=== PATIENT | male | born 1960 | race Caucasian/White ===

== ENCOUNTER → 2018-07-16 | Day surgery (SDC) | payer OTHER ==
[2018-07-13 09:53] LABS: BASOPHILS # (AUTO) 0.1 (0.0-0.1); BASOPHILS % 0.9 % (0.0-1.0); EOSINOPHILS # (AUTO) 0.4 (0.0-0.4); EOSINOPHILS % 5.1 % (0.0-6.0); HEMOGLOBIN 13.9 g/dL (14.0-18.0); LYMPHOCYTES % 27.2 % (18.0-39.1); MEAN CORPUSCULAR HEMOGLOBIN 31.6 pg (28-32); MEAN CORPUSCULAR HGB CONC 34.8 g/dL (31-35); MEAN CORPUSCULAR VOLUME 90.9 fL (81-99); MONOCYTES # (AUTO) 0.7 (0.2-0.8); NEUTROPHILS # (AUTO) 4.1 (2.1-6.9); NEUTROPHILS % 55.6 % (38.7-80.0); PLATELET COUNT 222 x10e3/uL (140-360); RED CELL DISTRIBUTION WIDTH 11.8 % (11.7-14.4)
[~2018-07-16] MED LIST: ASPIR 8181 MG PO; ATORVASTATIN CA20 MG PO; FENOFIBRATE145 MG PO; FENTANYL CITRATE/PF 100MCG/2 ML INJ ONE; LIDOCAINE HCL 2% LOCAL INJ 5 ML SDV VIAL INJ ONE; LOSARTAN-HCTZ1 EAC1 PO; MIDAZOLAM HCL 2 MG/2 ML VIAL ONE; PLAVIX75 MG PO; PROPOFOL IV EMULSION 10 MG/ML 50 ML VIAL ONE; VIT D3 PO
[2018-07-16 09:15] VITALS: BP 108/67
--- NOTE | 2018-07-16 10:46 | Operative Report ---
DATE OF PROCEDURE: July 16, 2018 REFERRING PHYSICIAN: Dr. You Palomo PROCEDURES PERFORMED 1. Esophagogastroduodenoscopy with biopsies. 2. Colonoscopy with polypectomy. INDICATIONS FOR EGD: Heartburn and indigestion. INDICATIONS FOR COLONOSCOPY: Colorectal cancer screening. MEDICATION: Patient was done under MAC. Please see anesthesiologist's note. PROCEDURE: With the patient in the left lateral decubitus position, the flexible fiberoptic Olympus gastroscope was introduced into the esophagus under direct visualization without any difficulty. There was some patchy erythema noted in the distal esophagus. The scope was then advanced with ease into the stomach. Mucosa overlying the antrum and the body revealed some diffuse erythema and moderate edema, and biopsies were obtained and sent to stain for H. pylori. Pylorus appeared to be of normal contour and shape. It was intubated with ease. The scope was advanced all the way to the 2nd portion of the duodenum. Biopsies were obtained from the proximal 2nd portion as there was somewhat scalloped folds noted and biopsies were obtained to rule out sprue. The mucosa overlying the bulb appeared to be within normal limits. The scope was then withdrawn back into the stomach and retroflexed. The mucosa overlying the fundus and the cardia appeared to be within normal limits. The scope was then straightened out. It was subsequently withdrawn. Patient tolerated the procedure well. IMPRESSION 1. Distal esophagitis. 2. Gastritis, biopsied. Biopsies sent to stain for Helicobacter pylori. 3. Rule out sprue. PLAN: Follow up histology. Initiate Protonix 40 mg 1 p.o. q.a.m. a.c. The patient was then turned around. After adequate lubrication of the anal canal, a flexible fiberoptic Olympus colonoscope was inserted into the rectum with ease and advanced all the way to the cecum. The scope was then withdrawn slowly. Mucosa overlying the cecum appeared to be within normal limits. Two polyps were snared from the ascending colon and 1 polyp was snared from the transverse colon. Descending and sigmoid appeared to be within normal limits. Two polyps were hot biopsied from the rectosigmoid and 2 polyps were hot biopsied from the rectum. The scope was then retroflexed into the distal rectum. Small internal hemorrhoids were noted, none of which was actively bleeding. The scope was then straightened out. It was subsequently withdrawn. Patient tolerated the procedure well. IMPRESSION 1. Ascending colon polyps times 2, snared. 2. Transverse colon polyp times 1, snared. 3. Rectal sigmoid polyps times 2, hot biopsied. 4. Rectal polyps times 2, hot biopsied. 5. Internal hemorrhoids, none actively bleeding. PLAN: Follow up histology. Initiate high-fiber and low-fat diet. Initiate high-fiber supplement. Patient might benefit from a followup colonoscopy in 3 years. Job#: [id number] RI cc:YOU PALOMO M.D.
== END | disposition home or self-care (01) ==
LOC: OR 06:57
PROVIDERS: ATTEND Internal Medicine Gastroenterology
DX: Z12.11 Encounter for screening for malignant neoplasm of colon (principal); D12.2 Benign neoplasm of ascending colon; D12.3 Benign neoplasm of transverse colon; K62.1 Rectal polyp; K29.50 Unspecified chronic gastritis without bleeding; K20.9 Esophagitis, unspecified; K64.8 Other hemorrhoids; I25.10 Atherosclerotic heart disease of native coronary artery without angina pectoris; I10 Essential (primary) hypertension; Z01.810 Encounter for preprocedural cardiovascular examination; Z01.812 Encounter for preprocedural laboratory examination; F17.220 Nicotine dependence, chewing tobacco, uncomplicated; Z79.82 Long term (current) use of aspirin; Z79.02 Long term (current) use of antithrombotics/antiplatelets; Z95.5 Presence of coronary angioplasty implant and graft
CPT/HCPCS: 36415; 43239; 45384; 45385; 85025; 93005; J2001; J2250; 45378

== ENCOUNTER 2018-07-30 17:53 | Inpatient (IN) | payer OTHER ==
[~2018-07-30] VITALS: Ht 180.3 cm; Wt 112.9 kg
[~2018-07-30 17:53] MED LIST changes: -FENTANYL CITRATE/PF 100MCG/2 ML INJ ONE; -LIDOCAINE HCL 2% LOCAL INJ 5 ML SDV VIAL INJ ONE; -MIDAZOLAM HCL 2 MG/2 ML VIAL ONE; -PROPOFOL IV EMULSION 10 MG/ML 50 ML VIAL ONE
[2018-07-30] MEDS ORDERED: SODIUM CHLORIDE 0.9% 1000ML 2,000 ML ONE (18:17)
[2018-07-30] MEDS ORDERED: SODIUM CHLORIDE 0.9% 1000ML 1,000 ML IV STA ×2 (18:20→18:21)
[2018-07-30] MEDS ORDERED: PANTOPRAZOLE 40 MG 10ML VIAL IV ONE (18:22)
[2018-07-30 18:25] LABS: BASOPHILS # (AUTO) 0.1 (0.0-0.1); BASOPHILS % 0.6 % (0.0-1.0); EOSINOPHILS # (AUTO) 0.5 (0.0-0.4); EOSINOPHILS % 3.7 % (0.0-6.0); HEMATOCRIT 32.5 % (38.2-49.6); HEMOGLOBIN 11.5 g/dL (14.0-18.0); LYMPHOCYTES # (AUTO) 3.1 (1.0-3.2); LYMPHOCYTES % 24.3 % (18.0-39.1); MEAN CORPUSCULAR HEMOGLOBIN 31.9 pg (28-32); MEAN CORPUSCULAR HGB CONC 35.4 g/dL (31-35); MEAN CORPUSCULAR VOLUME 90.3 fL (81-99); MONOCYTES # (AUTO) 1.1 (0.2-0.8); MONOCYTES % 8.4 % (4.4-11.3); NEUTROPHILS # (AUTO) 7.9 (2.1-6.9); NEUTROPHILS % 62.3 % (38.7-80.0); PLATELET COUNT 284 x10e3/uL (140-360); RED CELL DISTRIBUTION WIDTH 11.9 % (11.7-14.4)
[2018-07-30 18:35] LABS: INR 0.89; PROTHROMBIN TIME 12.9 seconds (11.9-14.5)
[2018-07-30 18:37] LABS: PARTIAL THROMBOPLASTIN TIME 20.6 seconds (23.8-35.5)
[2018-07-30 18:47] LABS: ALANINE AMINOTRANSFERASE 32 IU/L (0-55); ALBUMIN 3.8 g/dL (3.5-5.0); ALBUMIN/GLOBULIN RATIO 1.5 (0.8-2.0); ALKALINE PHOSPHATASE 31 IU/L (40-150); AMYLASE 61 U/L (25-125); ANION GAP 17.5 mmol/L (8-16); BLOOD UREA NITROGEN 21 mg/dL (7-26); BUN/CREATININE RATIO 17 (6-25); CALCIUM 9.2 mg/dL (8.4-10.2); CARBON DIOXIDE 20 mmol/L (22-29); CHLORIDE 106 mmol/L (98-107); CREATINE KINASE 204 IU/L (30-200); CREATININE, SERUM 1.24 mg/dL (0.72-1.25); EST GLOMERULAR FILTRATION RATE 60 ML/MIN (60-); GLUCOSE 156 mg/dL (74-118); LIPASE 55 U/L (8-78); MAGNESIUM 1.9 MG/DL (1.3-2.1); POTASSIUM 3.5 mmol/L (3.5-5.1); SODIUM 140 mmol/L (136-145)
--- NOTE | 2018-07-30 19:01 | NUR ---
RCVED PT REPORT FROM JASON WADE. ASSUMED PT CARE, PT A&Ox3 , RESP EVEN AND UNLABORED, SKIN W&D AND NORMAL COLOR, NO CHANGE TO IV SITE, FAMILY AT BEDSIDE, PT AWARE OF PLAN OF CARE AND DENIES ANY OTHER CONCERNS
[2018-07-30 19:02] LABS: B-TYPE NATRIURETIC PEPTIDE2 < 10.0 pg/mL (0-100)
[2018-07-30] MEDS ORDERED: SODIUM CHLORIDE 0.9% 50ML 50 ML ONE ×2 (20:06→20:39)
--- NOTE | 2018-07-30 20:18 | NUR ---
BLOOD CULTURE DRAWN ON PT, PT GIVEN MEDS PER MD ORDERS, PT TOLERATED WELL, NO CHANGE TO IV SITE, DR TOMAS AT BEDSIDE AND DISCUSSED LAB RESULTS WITH PT AND TO INFORM PT THAT DR HELM WOULD BE TAKEN OVER CARE, PT AWARE OF PLAN OF CARE AND DENIES ANY OTHER CONCERNS, FAMILY AT BEDSIDE, WILL CONTINUE TO MONITOR
[2018-07-30] MEDS ORDERED: IOPAMIDOL 370 MG/ML 200 ML INFUS..BTL INJ ONE (20:40)
--- NOTE | 2018-07-30 21:23 | Diagnostic Imaging Report ---
EXAM: CT Abdomen and Pelvis WITH contrast INDICATION: Abdominal pain, GI bleeding ^abdominal pain and gi bleed ^Y COMPARISON: None. TECHNIQUE: Abdomen and pelvis were scanned utilizing a multidetector helical scanner from the lung base to the pubic symphysis after administration of IV contrast. Coronal and sagittal reformations were obtained. Routine protocol was performed. Scan was performed during portal venous phase. IV CONTRAST: 100 mL of Isovue-370 ORAL CONTRAST: Water COMPLICATIONS: None RADIATION DOSE: Total DLP: 850.7 mGy*cm Estimated effective dose: (DLP x 0.015 x size factor) mSv CTDIvol has been reviewed. It is below the limits set by the Radiation Protocol Committee (RPC). Dose modulation, iterative reconstruction, and/or weight based adjustment of the mA/kV was utilized to reduce the radiation dose to as low as reasonably achievable. FINDINGS: LINES and TUBES: None. LOWER THORAX: Unremarkable HEPATOBILIARY: Diffuse hypoattenuation of the liver relative to the spleen, compatible with hepatic steatosis. No focal hepatic lesions. No biliary ductal dilation. GALLBLADDER: No radio-opaque stones or sludge. No wall thickening. SPLEEN: No splenomegaly. PANCREAS: No focal masses or ductal dilatation. ADRENALS: No adrenal nodules KIDNEYS/URETERS: Kidneys enhance symmetrically. No hydronephrosis. No cystic or solid mass lesions. No stones. GI TRACT: No abnormal distention, wall thickening, or evidence of bowel obstruction. Area of intraluminal ill-defined hyperattenuation near the ileocecal valve appears greater in density than the supplying mesenteric vessels. Appendix is normal. PELVIC ORGANS/BLADDER: Unremarkable. LYMPH NODES: No lymphadenopathy. VESSELS: There is moderate atherosclerotic disease in the aorta and major arterial branches. PERITONEUM / RETROPERITONEUM: No free air or fluid. BONES: There are degenerative changes in the lumbar spine. SOFT TISSUES: Unremarkable. IMPRESSION: 1. Ill-defined intraluminal hyperdense intraluminal contents near the ileocecal valve favored to represent ingested material, although a site of GI bleeding cannot be excluded. 2. Otherwise, no acute abnormalities in the abdomen and pelvis. Signed by: DR. Jordan Hays MD on 07/30/2018 9:19 PM
--- NOTE | 2018-07-30 21:25 | Diagnostic Imaging Report ---
EXAMINATION: CHEST SINGLE (PORTABLE) INDICATION: Colorectal bleeding. COMPARISON: None FINDINGS: AP view TUBES and LINES: None. LUNGS: Lungs are well inflated. Lungs are clear. There is no evidence of pneumonia or pulmonary edema. PLEURA: No pleural effusion or pneumothorax. HEART AND MEDIASTINUM: The cardiomediastinal silhouette is unremarkable. BONES AND SOFT TISSUES: No acute osseous lesion. Soft tissues are unremarkable. UPPER ABDOMEN: No free air under the diaphragm. IMPRESSION: No acute thoracic abnormality. Signed by: DR. Jordan Hays MD on 07/30/2018 9:21 PM
--- NOTE | 2018-07-30 21:31 | Diagnostic Imaging Report ---
History:GI bleed Comparison studies:None Technique: Axial images were obtained from the skull base to the vertex. Coronal and sagittal reconstructions obtained from the axial data. Dose modulation, iterative reconstruction, and/or weight based adjustment of the mA/kV was utilized to reduce the radiation dose to as low as reasonably achievable. Contrast: None Findings: Scalp/skull: No abnormalities. No fractures, blastic or lytic lesions. Extra-axial spaces: No masses. No fluid collections. Brain sulci: Appropriate for age. Ventricles: Normal in size and configuration. No hydrocephalus. Parenchyma: No abnormal densities. No masses, hemorrhage, acute or chronic cortical vascular insults. Sellar/suprasellar region: No abnormalities Craniocervical junction: Patent foramen magnum. No Chiari one malformation. Atherosclerotic calcifications of the carotid siphons IMPRESSION: No acute abnormalities . Signed by: DR Sanket Robles M.D. on 07/30/2018 9:27 PM
[2018-07-30] MEDS: SODIUM CHLORIDE 0.9% 1000ML 1,000 ML IV SCH (22:27)
--- OUTSIDE RECORDS SUMMARY | 2018-07-30 22:28 | XMS REPORT ---
Author Author [facility] Address Unknown Phone Unavailable Care Team Providers Care Sql Analyst Name Role Phone Krystyna TOMAS Unavailable Unavailable Problems This patient has no known problems. Allergies, Adverse Reactions, Alerts This patient has no known allergies or adverse reactions. Medications This patient has no known medications. Results Test Description Test Time Test Comments Text Results Atomic Results Result Comments CT BRAIN WO 2018-07-30 21:24:00 [place] [address] Patient Name: DA SEGUNDO MR #: [id number] : 1960 Age/Sex: 58/M Req #: [id number] Adm Physician: Ordered by: JUSTINA BLACKWELL DINING SERVICE INSPECTOR Report #: [id number] Location: ER Room/Bed: Procedure: [id number] CT/CT BRAIN WO Exam Date: Exam Time: REPORT STATUS: Signed History:GI bleed Comparison studies:None Technique: Axial images were obtained from the skull base to the vertex. Coronal and sagittal reconstructions obtained from the axial data. Dose modulation, iterative reconstruction, and/or weight based adjustment of the mA/kV was utilized to reduce the radiation dose to as low as reasonably achievable. Contrast: None Findings: Scalp/skull: No abnormalities. No fractures, blastic or lytic lesions. Extra-axial spaces: No masses. No fluid collections. Brain sulci: Appropriate for age. Ventricles: Normal in size and configuration. No hydrocephalus. Parenchyma: No abnormal densities. No masses, hemorrhage, acute or chronic cortical vascular insults. Sellar/suprasellar region: No abnormalities Craniocervical junction: Patent foramen magnum. No Chiari one malformation. Atherosclerotic calcifications of the carotid siphons IMPRESSION: No acute abnormalities . Signed by: DR Sanket Robles M.D. on 07/30/2018 9:27 PM Dictated By: SANKET FREEMAN MD 26 Transcribed By: MARITO on 07/30/182126 COPY TO: JUSTINA BLACKWELL NP CHEST SINGLE (PORTABLE) 2018-07-30 21:19:00 [place] [address] Patient Name: DA SEGUNDO MR #: [id number] : 1960 Age/Sex: 58/M Req #: [id number] Adm Physician: Ordered by: JUSTINA BLACKWELL NP Report #: [id number] Location: ER Room/Bed: Procedure: [id number] DX/CHEST SINGLE (PORTABLE) Exam Date: Exam Time: REPORT STATUS: Signed EXAMINATION: CHEST SINGLE (PORTABLE) INDICATION: Colorectal bleeding. COMPARISON: None FINDINGS: AP view TUBES and LINES: None. LUNGS: Lungs are well inflated. Lungs are clear. There is no evidence of pneumonia or pulmonary edema. PLEURA: No pleural effusion or pneumothorax. HEART AND MEDIASTINUM: The cardiomediastinal silhouette is unremarkable. BONES AND SOFT TISSUES: No acute osseous lesion. Soft tissues are unremarkable. UPPER ABDOMEN: No free air under the diaphragm. IMPRESSION: No acute thoracic abnormality. Signed by: DR. Jordan Jesus MD on 07/30/2018 9:21 PM Dictated By: JORDAN JESUS MD 20 Transcribed By: MARITO on 07/30/182120 COPY TO: JUSTINA BLACKWELL NP CT ABDOMEN/PELVIS W 2018-07-30 21:06:00 [place] [address] Patient Name: DA SEGUNDO MR #: [id number] : 1960 Age/Sex: 58/M Req #: [id number] Adm Physician: Ordered by: JUSTINA BLACKWELL NP Report #: [id number] Location: ER Room/Bed: Procedure: [id number] CT/CT ABDOMEN/PELVIS W Exam Date: Exam Time: REPORT STATUS: Signed EXAM: CT Abdomen and Pelvis WITH contrast INDICATION: Abdominal pain, GI bleeding abdominal pain and gi bleed Y COMPARISON: None. TECHNIQUE: Abdomen and pelvis were scanned utilizing a multidetector helical scanner from the lung base to the pubic symphysis after administration of IV contrast. Coronal and sagittal reformations were obtained. Routine protocol was performed. Scan was performed during portal venous phase. IV CONTRAS T: 100 mL of Isovue-370 ORAL CONTRAST: Water COMPLICATIONS: None RADIATION DOSE: Total DLP: 850.7 mGy*cm Estimated effective dose: (DLP x 0.015 x size factor) mSv CTDIvol has been reviewed. It is below the limits set by the Radiation Protocol Committee (RPC). Dose modulation, iterative reconstruction, and/or weight based adjustment of the mA/kV was utilized to reduce the radiation dose to as low as reasonably achievable. FINDINGS: LINES and TUBES: None. LOWER THORAX: Unremarkable HEPATOBILIARY: Diffuse hypoattenuation of the liver relative to the spleen, compatible with hepatic steatosis. No focal hepatic lesions. No biliary ductal dilation. GALLBLADDER: No radio-opaque stones or sludge. No wall thickening. SPLEEN: No splenomegaly. PANCREAS: No focal masses or ductal dilatation. ADRENALS: No adrenal nodules KIDNEYS/URETERS: Kidneys enhance symmetrically. No hydronephrosis. No cystic or solid mass lesions. No stones. GI TRACT: No abnormal distention, wall thickening, or evidence of bowel obstruction. Area of intraluminal ill- defined hyperattenuation near the ileocecal valve appears greater in density than the supplying mesenteric vessels. Appendix is normal. PELVIC ORGANS/BLADDER: Unremarkable. LYMPH NODES: No lymphadenopathy. VESSELS: There is moderate atherosclerotic disease in the aorta and major arterial branches. PERITONEUM / RETROPERITONEUM: No free air or fluid. BONES: There are degenerative changes in the lumbar spine. SOFT TISSUES: Unremarkable. IMPRESSION: 1. Ill-defined intraluminal hyperdense intraluminal contents near the ileocecal valve favored to represent ingested material, although a site of GI bleeding cannot be excluded. 2. Otherwise, no acute abnormalities in the abdomen and pelvis. Signed by: DR. Jordan Jesus MD on 07/30/2018 9:19 PM Dictated By: JORDAN JESUS MD 18 Transcribed By: MARITO on 07/30/182118 COPY TO: JUSTINA BLACKWELL NP
[2018-07-30] MEDS ORDERED: SODIUM CHLORIDE 0.9% 250ML 250 ML IV ONE (22:30)
[2018-07-30] MEDS ORDERED: FUROSEMIDE INJ 10 MG/ML 2 ML VIAL IV PRN (22:30)
[2018-07-30 22:52] LABS: HEMATOCRIT 24.8 % (38.2-49.6); HEMOGLOBIN 8.5 g/dL (14.0-18.0)
--- NOTE | 2018-07-30 23:10 | NUR ---
CONSENT SIGNED BY PT TO GET BLOOD.
--- NOTE | 2018-07-30 23:12 | NUR ---
PT ASKED TO BE DISCONNECTED TO GO TO THE BATHROOM, I UNHOOKED PT FROM MONITOR AND HELP PT TO THE SIDE OF THE BED, PT SIT AT THE SIDE OF THE BED FOR APPROX 2 MINS, PT WAS THEN ASSISTED TO HIS FEET, PT BECAME VERY DIZZY, PT ASSISTED BACK TO THE BED, I WENT TO GET WHEELCHAIR AND PT STATED THAT HE COULDNT GET UP, PT WAS THEN OFFERED BEDSIDE TOLIET AND HIS STATED HE WANTED TO JUST WAIT
--- NOTE | 2018-07-30 23:26 | NUR ---
BLOOD VERFIED AT BEDSIDE BY Enrico PRATHER AND OTTO OTT. BLOOD TRANSFUSION STARTED TO THE LAC, INFUSION @ 75CC./HR. PT TOLERATING WELL, NO CHANGE TO IV SITE, WILL CONTINUE TO MONITOR
--- NOTE | 2018-07-30 23:59 | NUR ---
PT REPORT GIVEN TO SHAVONNE CARMONA
[2018-07-31] VITALS (79 sets, daily range): BP systolic 69–138; BP diastolic 36–99
--- NOTE | 2018-07-31 00:26 | NUR ---
Received to 196 from ER. Placed on EKG, pulse ox & NBP for monitoring. Blood transfusion in progress. IV NS @ 125ml/hr. Admission history & Initial admission assessment completed. See interventions. No O2 with sats 98-100%.
--- NOTE | 2018-07-31 02:00 | NUR ---
Blood transfusion complete. Assisted up to bedside commode for mod bloody stool with clots. Pt became pale and BP dropped. Assisted back to bed. BP stablized after getting back in bed.
--- NOTE | 2018-07-31 02:20 | NUR ---
Platelets not available yet, so second unit PRBCs started.
--- NOTE | 2018-07-31 06:20 | NUR ---
Filled two bedpans full of blood with clots. Call to Dr. Melgar. New orders given.
[2018-07-31] MEDS ORDERED: SODIUM CHLORIDE 0.9% 250ML 250 ML IV ONE (06:30)
[2018-07-31] MEDS: SODIUM CHLORIDE 0.9% 1000ML 1,000 ML IV SCH ×3 (07:43→21:57)
--- NOTE | 2018-07-31 10:27 | NUR ---
Dr Mohan Melgar to bedside; [facility] for [facility].
[2018-07-31 12:49] LABS: HEMOGLOBIN 8.4 g/dL (14.0-18.0)
[2018-07-31 14:24] LABS: HEMATOCRIT 23.7 % (38.2-49.6); HEMOGLOBIN 8.4 g/dL (14.0-18.0)
[2018-07-31] MEDS ORDERED: SODIUM CHLORIDE 0.9% 250ML 250 ML IV NR (14:30)
[2018-07-31 14:34] LABS: INR 0.98; PROTHROMBIN TIME 13.9 seconds (11.9-14.5)
--- NOTE | 2018-07-31 15:18 | Diagnostic Imaging Report ---
Tagged-RBC GI Bleed Study Clinical information: 58-year-old male with rectal bleeding. Discussion: The patient's own red blood cells were labeled with 21.5 mCi of technetium-99m pertechnetate using the in vitro method (UltraTag). Dynamic images of the abdomen were obtained through 60 minutes. Distribution of tracer activity appears physiologic throughout the abdomen. No abnormal accumulation of tracer is seen within the gastrointestinal lumen. Impression: No scan evidence of active gastrointestinal bleeding at this time. Signed by: Dr. Tammy Erazo M.D. on 07/31/2018 3:15 PM
--- NOTE | 2018-07-31 15:43 | NUR ---
CM SPOKE TO PATENT AT BEDSIDE. PATIENT LIVES WITH YUKI SEGUNDO IN [facility]. PATIENT WITH NO NEEDS AND WAS INDEPENDENT PRIOR TO ADMISSION. PATIENT GOAL IS TO RETURN HOME HEALTH AND INDEPENDENT. : YUKI SEGUNDO [phone] PATIENT AND PATIENT GIVEN CM INFORMATION
[2018-07-31] MEDS ORDERED: ACETAMINOPHEN 1000 MG/100 ML IV STA (16:02)
--- NOTE | 2018-07-31 16:20 | NUR ---
Patient to Endo via bed with Dr Vicki Melgar at bedside; PLTs infusing. Bedside report to SHAVONNE Mo.
--- NOTE | 2018-07-31 17:10 | NUR ---
Patient returned to Room 196 via bed. Vicki Melgar conferencing with patient . Plan is to transfuse 1 PRBC and draw H&H 2 hours post transfusion. VSS Temp 98.8 presently.
--- NOTE | 2018-07-31 19:00 | NUR ---
Bedside report received from Etelvina Tiwari RN. Pt resting in bed AAOx4, pt reports no pain at this time. Bed in lowest and locked position, call light in reach, alternating pressure mattress in use, yellow socks in use. Pts is present and staying the night at the pts bedside.
[2018-07-31 20:36] LABS: HEMATOCRIT 27.5 % (38.2-49.6); HEMOGLOBIN 9.7 g/dL (14.0-18.0)
--- NOTE | 2018-07-31 21:05 | NUR ---
Dr. Aleisha Melgar paged at this time (per his request per AM nurse shift report) to notify him of Hgb and HCT results. Currently awaiting his return call.
[2018-08-01] VITALS (59 sets, daily range): BP systolic 95–146; BP diastolic 49–84
[2018-08-01] MEDS ORDERED: CITRATE OF MAGNESIA 300ML BOTTLE PO ONE ×3 (01:00→12:30)
--- NOTE | 2018-08-01 01:00 | NUR ---
Dr. Aleisha Melgar return called after page. Reported Hgb and HCT results and descriptions of last two stools/BMs. New orders received. Refer to Sobia and orders for further information.
--- NOTE | 2018-08-01 02:52 | NUR ---
Dr. Aleisha Melgar present and assessing the pt. Pts at the bedside. New order received to give 1 jumbo plts.
[2018-08-01] MEDS: SODIUM CHLORIDE 0.9% 1000ML 1,000 ML IV SCH ×2 (03:10→12:09)
[2018-08-01 05:01] LABS: HEMATOCRIT 26.4 % (38.2-49.6); HEMOGLOBIN 8.8 g/dL (14.0-18.0)
--- NOTE | 2018-08-01 05:55 | NUR ---
Dr. Aleisha Melgar paged through his answering service at this time. Currently awaiting his return call.
--- NOTE | 2018-08-01 06:53 | NUR ---
Dr. Aleisha Melgar return called. Reported BM description, Hgb and HCT results. No new orders received.
[2018-08-01] MEDS ORDERED: SODIUM CHLORIDE 0.9% 250ML 250 ML ONE (07:09)
--- NOTE | 2018-08-01 07:38 | NUR ---
platelet transfusion started at 0730.
--- NOTE | 2018-08-01 09:30 | NUR ---
platelets done infusing with no reaction.
--- NOTE | 2018-08-01 10:00 | NUR ---
PATIENT TO GET PROCEDURE: Colonoscopy with hemoclipping of polypectomy sites CM TO FOLLOW UP AND SEE IF PT IS NEEDED. IF PATIENT AMBULATES, RN WILL FACILITATE WITH MOBILITY
[2018-08-01 11:10] LABS: HEMOGLOBIN 8.6 g/dL (14.0-18.0)
[2018-08-01 13:27] LABS: INR 0.91; PARTIAL THROMBOPLASTIN TIME 24.3 seconds (23.8-35.5); PROTHROMBIN TIME 13.1 seconds (11.9-14.5)
[2018-08-01] MEDS: ACETAMINOPHEN 325 MG TAB PO PRN (17:49)
[2018-08-01 18:04] LABS: HEMATOCRIT 24.6 % (38.2-49.6); HEMOGLOBIN 8.6 g/dL (14.0-18.0)
[2018-08-01] MEDS ORDERED: KETAMINE HCL INJ 50 MG/ML 10 ML VIAL ONE ×2 (18:39→19:11)
[2018-08-01] MEDS ORDERED: FENTANYL CITRATE/PF 100MCG/2 ML INJ ONE ×2 (18:39→19:11)
[2018-08-01] MEDS ORDERED: EPINEPHRINE HCL INJ 1 MG/ML AMP ONE (18:57)
[2018-08-01] MEDS ORDERED: MIDAZOLAM HCL 5MG/ML 2ML VIAL ONE (19:11)
[2018-08-01] MEDS ORDERED: HYOSCYAMINE SULFATE 0.5 MG/ML INJ ONE (19:27)
[2018-08-01] MEDS ORDERED: LIDOCAINE HCL 2% LOCAL INJ 5 ML SDV VIAL INJ ONE (19:27)
[2018-08-01] MEDS ORDERED: PROPOFOL IV EMULSION 10 MG/ML 20 ML VIAL ONE (19:27)
[2018-08-02] VITALS (32 sets, daily range): BP systolic 118–159; BP diastolic 69–89
[2018-08-02 00:18] LABS: HEMATOCRIT 24.5 % (38.2-49.6); HEMOGLOBIN 8.4 g/dL (14.0-18.0)
[2018-08-02] MEDS: SODIUM CHLORIDE 0.9% 1000ML 1,000 ML IV SCH ×2 (01:57→10:30)
--- NOTE | 2018-08-02 02:53 | Operative Report ---
DATE OF PROCEDURE: August 01, 2018 REFERRING PHYSICIAN: Dr. You Rhoades. PROCEDURE PERFORMED: Colonoscopy with hemoclipping of polypectomy sites. INDICATIONS FOR COLONOSCOPY: Rectal bleeding. The patient is status post colonoscopy with polypectomy. Bleeding started 2 weeks post colonoscopy after initiation of Plavix and aspirin. MEDICATIONS: Patient was done under MAC. Please see anesthesiologist's note. PROCEDURE: Patient was placed in left lateral decubitus position. A flexible fiberoptic Olympus colonoscope was inserted into the rectum with ease and advanced all the way to the cecum. Mucosa overlying the cecum appeared to be within normal limits. Polypectomy site noted in the proximal ascending colon with some stigmata or recent hemorrhage that was hemoclipped. The rest of the ascending, transverse, and descending appeared to be within normal limits. One polypectomy site distal sigmoid was hemoclipped x2 and one polypectomy site proximal rectum was hemoclipped x1. The scope was then subsequently withdrawn. Patient tolerated the procedure well. IMPRESSION 1. Ascending colon polypectomy site with stigmata of recent hemorrhage, hemoclipped x1. 2. Sigmoid colon polypectomy site hemoclipped x2. 3. Rectal polypectomy site hemoclipped x1. PLAN: Follow H and H. Initiate GI soft diet. Job#: [id number] ZEN cc:You Rhoades MD
[2018-08-02 04:39] LABS: HEMATOCRIT 23.9 % (38.2-49.6); HEMOGLOBIN 8.1 g/dL (14.0-18.0)
[2018-08-02 06:16] LABS: % IRON SATURATION 18 % (15-50); IRON 35 ug/dL (65-175); TOTAL IRON BINDING CAPACITY 199 ug/dL (261-478); TRANSFERRIN 142 mg/dL (174-364)
[2018-08-02] MEDS: IRON SUCROSE 100 MG in SODIUM CHLORIDE 0.9% 100 ML 100 ML IV SCH (09:11)
[2018-08-02 11:04] LABS: HEMOGLOBIN 8.2 g/dL (14.0-18.0)
[2018-08-02 13:50] LABS: FOLATE 14.8 ng/mL (7.0-15.4)
--- NOTE | 2018-08-02 14:00 | NUR ---
Pt c/o chest tightness, denies pain or numbness. States that he feels that he cannot take a full breath. VSS, lung sounds clear, pt has tight nonpitting generalized edema, states that he cannot close his fists. IVF stopped, stat EKG and labs ordered under protocol, MD Storm Melgar paged, awaiting response.
[2018-08-02 14:35] LABS: ANION GAP 10.6 mmol/L (8-16); BLOOD UREA NITROGEN 10 mg/dL (7-26); BUN/CREATININE RATIO 12 (6-25); CALCIUM 8.5 mg/dL (8.4-10.2); CARBON DIOXIDE 21 mmol/L (22-29); CHLORIDE 112 mmol/L (98-107); CREATINE KINASE 292 IU/L (30-200); CREATININE, SERUM 0.84 mg/dL (0.72-1.25); EST GLOMERULAR FILTRATION RATE > 60 ML/MIN (60-); GLUCOSE 95 mg/dL (74-118); POTASSIUM 3.6 mmol/L (3.5-5.1); SODIUM 140 mmol/L (136-145)
--- NOTE | 2018-08-02 14:40 | NUR ---
Cardiology consult paged, paging service stated that MD Xie is vice president of talent acquisition. Awaiting response.
[2018-08-02 16:49] LABS: HEMATOCRIT 27.2 % (38.2-49.6); HEMOGLOBIN 9.4 g/dL (14.0-18.0)
[2018-08-02] MEDS ORDERED: NITROGLYCERIN 0.4 MG SUBL SL PRN (18:15)
[2018-08-02] MEDS ORDERED: HYDRALAZINE HCL 20 MG/ML VIAL IV PRN (18:15)
[2018-08-02] MEDS ORDERED: METOPROLOL TARTRATE INJ 1 MG/ML VIAL IV PRN (18:15)
--- NOTE | 2018-08-02 18:36 | NUR ---
DO Xie returned 3rd page, orders rec'd. informed that pt was under MD Angel Shah, and asked if she was going to review pt's history. DO Xie stated that she was not going to review pt's history, and that she was only covering.
[2018-08-02 18:47] LABS: CHOL/HDL RATIO 5.6 (3.9-4.7); MAGNESIUM 2.5 MG/DL (1.3-2.1); PHOSPHORUS 2.8 MG/DL (2.3-4.7)
[2018-08-02 19:07] LABS: THYROID STIMULATING HORMONE 4.583 uIU/mL (0.350-4.940)
[2018-08-02 22:54] LABS: CREATINE KINASE MB 1.7 ng/mL (0-5.0)
--- NOTE | 2018-08-02 23:26 | NUR ---
Paged Dr. Parvez Melgar through answering service, waiting for Md to call back. MD called back in 2 minutes after, this nurse asked MD if he wanted to order H & H in am, MD ordered cbc in am. Transcribed order in EMR.
[2018-08-03] MEDS: ACETAMINOPHEN 325 MG TAB PO PRN (01:40)
[2018-08-03 04:51] VITALS: BP 143/81
[2018-08-03] MEDS: IRON SUCROSE 100 MG in SODIUM CHLORIDE 0.9% 100 ML 100 ML IV SCH (04:52)
[2018-08-03 05:11] LABS: BASOPHILS % 0.3 % (0.0-1.0); EOSINOPHILS # (AUTO) 0.3 (0.0-0.4); HEMATOCRIT 24.5 % (38.2-49.6); HEMOGLOBIN 8.4 g/dL (14.0-18.0); LYMPHOCYTES # (AUTO) 1.3 (1.0-3.2); LYMPHOCYTES % 14.8 % (18.0-39.1); MEAN CORPUSCULAR HEMOGLOBIN 30.8 pg (28-32); MEAN CORPUSCULAR HGB CONC 34.3 g/dL (31-35); MEAN CORPUSCULAR VOLUME 89.7 fL (81-99); MONOCYTES # (AUTO) 0.7 (0.2-0.8); MONOCYTES % 8.3 % (4.4-11.3); NEUTROPHILS # (AUTO) 6.5 (2.1-6.9); PLATELET COUNT 225 x10e3/uL (140-360); RED BLOOD COUNT 2.73 x10e6/uL (4.3-5.7); RED CELL DISTRIBUTION WIDTH 13.5 % (11.7-14.4)
--- NOTE | 2018-08-03 06:46 | NUR ---
Report given to Femi Randolph RN
[2018-08-03 07:30] VITALS: BP 154/96
--- NOTE | 2018-08-03 11:34 | NUR ---
Dr Melgar in to see patient. states that patient may be discharged if cleared by cardiology.
[2018-08-03 11:48] VITALS: BP 139/94
[2018-08-03 11:49] VITALS: BP 139/94
[2018-08-03] MEDS ORDERED: PROPOFOL IV EMULSION 10 MG/ML 20 ML VIAL ONE (12:00)
[2018-08-03] MEDS ORDERED: LIDOCAINE HCL 2% LOCAL INJ 5 ML SDV VIAL INJ ONE (12:00)
--- NOTE | 2018-08-03 12:15 | NUR ---
CM SPOKE TO MD REGARDING PATIENT DISCHARGE BARRIERS MD STATES PATIENT IS HAVING CHEST PAIN SO HE MAY CONSULT DR. SCHWARZ TO DO WORK-UP CM TO FOLLOW UP IN AM
== END 2018-08-03 14:10 | disposition home or self-care (01) | DRG 394 ==
LOC: ER 17:53 → ERHOLD 22:25 → ICU 07-31 00:26 → IMCU 08-02 06:45
PROC: 30233N1 Transfusion of Nonautologous Red Blood Cells into Peripheral Vein, Percutaneous Approach (ICD-10-PCS; 2018-07-31)
PROC: 30233R1 Transfusion of Nonautologous Platelets into Peripheral Vein, Percutaneous Approach (ICD-10-PCS; 2018-07-31)
PROC: 0DJD8ZZ Inspection of Lower Intestinal Tract, Via Natural or Artificial Opening Endoscopic (ICD-10-PCS; 2018-07-31)
PROC: 0DBK8ZX Excision of Ascending Colon, Via Natural or Artificial Opening Endoscopic, Diagnostic (ICD-10-PCS; 2018-08-01)
PROC: 0DBN8ZX Excision of Sigmoid Colon, Via Natural or Artificial Opening Endoscopic, Diagnostic (ICD-10-PCS; 2018-08-01)
PROC: 0DBP8ZX Excision of Rectum, Via Natural or Artificial Opening Endoscopic, Diagnostic (ICD-10-PCS; 2018-08-01)
PROC: 0W3P8ZZ Control Bleeding in Gastrointestinal Tract, Via Natural or Artificial Opening Endoscopic (ICD-10-PCS; principal; 2018-08-01 18:49)
DX: K63.5 Polyp of colon (principal); D62 Acute posthemorrhagic anemia; E11.22 Type 2 diabetes mellitus with diabetic chronic kidney disease; I12.9 Hypertensive chronic kidney disease with stage 1 through stage 4 chronic kidney disease, or unspecified chronic kidney disease; N18.2 Chronic kidney disease, stage 2 (mild); Z79.4 Long term (current) use of insulin; I25.10 Atherosclerotic heart disease of native coronary artery without angina pectoris; Z95.5 Presence of coronary angioplasty implant and graft
CPT/HCPCS: 36415; 44391; 45378; 70450; 71045; 74177; 78278; 80048; 80053; 80061; 82150; 82270; 82550; 82553; 82607; 82746; 83540; 83605; 83690; 83735; 83880; 84100; 84443; 84466; 84484; 84550; 85014; 85018; 85025; 85045; 85610; 85730; 86850; 86900; 86920; 86945; 87040; 93005; 93306; 96374; 99284; A9512; J0171; J1756; J1940; J1980; J2001; J2250; J7030; J7050; P9016; P9034; Q9967

== ENCOUNTER → 2021-09-22 | Day surgery (SDC) | payer BC ==
[~2021-09-22] MED LIST changes: +ASPIRIN81 MG PO; +FENTANYL CITRATE/PF 100MCG/2 ML INJ ONE; +FISH OIL 1,2001 EACH PO; +LIDOCAINE HCL 2% LOCAL INJ 5 ML SDV VIAL INJ ONE; +LOSARTAN POTASS25 MG PO; +MIDAZOLAM HCL 2 MG/2 ML VIAL ONE; +PRALUENT P75 MG/1 ML SC; +PROPOFOL IV EMULSION 10 MG/ML 20 ML VIAL ONE; +VIT D PO
[2021-09-22 12:55] VITALS: BP 122/79
== END | disposition home or self-care (01) ==
LOC: MERGE 09:59 → OR 09:59 → EDBD 12:00
PROVIDERS: ATTEND Internal Medicine Gastroenterology
DX: K29.50 Unspecified chronic gastritis without bleeding (principal); B96.81 Helicobacter pylori [H. pylori] as the cause of diseases classified elsewhere; K20.90 Esophagitis, unspecified without bleeding; Z86.010 Personal history of colon polyps; I25.10 Atherosclerotic heart disease of native coronary artery without angina pectoris; I10 Essential (primary) hypertension; F17.220 Nicotine dependence, chewing tobacco, uncomplicated; Z01.810 Encounter for preprocedural cardiovascular examination; Z01.812 Encounter for preprocedural laboratory examination; Z20.822 Contact with and (suspected) exposure to COVID-19; Z79.82 Long term (current) use of aspirin; Z79.02 Long term (current) use of antithrombotics/antiplatelets; Z79.899 Other long term (current) drug therapy; Z68.31 Body mass index [BMI] 31.0-31.9, adult; Z95.5 Presence of coronary angioplasty implant and graft
CPT/HCPCS: 43239; 93005; C9113; J2001; J2250; J2704; J3010; U0002